=== PATIENT | female | born 1960 | race Caucasian/White ===

== ENCOUNTER 2018-04-23 07:30 | Inpatient (IN) | payer BC ==
[~2018-04-23] VITALS: Ht 149.9 cm; Wt 59.2 kg
[~2018-04-23 07:30] MED LIST: BACITRACIN 50,000 UNIT ONE; BACITRACIN OINT 500U/GM, 15 GM ONE; BUPIVACAINE/PF-EPI 0.5% 1:200K ONE; HYDR-3240 PO; LEVO100T5 PO; METH750T2 PO; THROMBIN SPRAY 20,000 UNIT SPRAY TP ONE; TRAZ50TA66 PO
[2018-04-23] MEDS ORDERED: GABAPENTIN 300 MG CAPSULE PO ONE ×2 (11:30→12:00)
[2018-04-23] MEDS ORDERED: ACETAMINOPHEN 500 MG TABLET PO ONE ×2 (11:30→12:00)
[2018-04-23] MEDS ORDERED: ONDANSETRON ODT 8 MG PO ONE ×2 (11:30→12:00)
[2018-04-23] MEDS ORDERED: LACTATED RINGERS 1,000 ML IV SCH (11:36)
[2018-04-23] MEDS ORDERED: MIDAZOLAM 1 MG/ML, 2ML ONE ×2 (12:35→15:12)
[2018-04-23] MEDS ORDERED: DEXAMETHASONE 4 MG/ML, 1ML ONE ×2 (12:35)
[2018-04-23] MEDS ORDERED: FENTANYL PF 250 MCG/5ML ONE (12:35)
[2018-04-23] MEDS ORDERED: CEFAZOLIN 1,000 MG ONE ×2 (12:36)
[2018-04-23] MEDS ORDERED: SUCCINYLCHOLINE 20 MG/ML, 10ML ONE (12:36)
[2018-04-23] MEDS ORDERED: LIDOCAINE-MPF 2% ,5ML ONE (12:36)
[2018-04-23] MEDS ORDERED: PROPOFOL 10 MG/ML, 20ML ONE (12:36)
[2018-04-23] MEDS ORDERED: PROPOFOL 50 ML ONE (12:44)
[2018-04-23] MEDS ORDERED: LORazepam 2 MG/ML, 1ML IVPush PRN (15:00)
[2018-04-23] MEDS ORDERED: hydrALAzine 20 MG/ML, 1ML IV PRN (15:00)
[2018-04-23] MEDS ORDERED: LABETALOL 5MG/ML, 20ML IV PRN (15:00)
[2018-04-23] MEDS ORDERED: METOCLOPRAMIDE 5 MG/ML, 2ML IV PRN (15:00)
[2018-04-23] MEDS ORDERED: MEPERIDINE/PF 25MG/0.5ML IVPush PRN (15:00)
[2018-04-23] MEDS ORDERED: OXYcodone 5 MG/5 ML ORAL.SOL UDC PO PRN (15:00)
[2018-04-23] MEDS: FENTANYL PF 100 MCG/2ML IV PRN ×2 (16:58→17:07)
[2018-04-23] MEDS ORDERED: HYDROmorphone 2 MG/ML, 1ML ONE (17:00)
[2018-04-23] MEDS ORDERED: FENTANYL PF 100 MCG/2ML ONE (17:00)
[2018-04-23] MEDS ORDERED: OXYcodone 5 MG/5 ML ORAL.SOL UDC ONE (17:00)
[2018-04-23] MEDS: HYDROmorphone 2 MG/ML, 1ML IVPush PRN ×2 (17:03→17:25)
[2018-04-23] MEDS ORDERED: HYDROcodone/APAP 5/325 TABLET PO PRN (19:00)
[2018-04-23] MEDS ORDERED: PROMETHAZINE 25 MG/ML, 1ML IM PRN (19:00)
[2018-04-23] MEDS ORDERED: ACETAMINOPHEN 325 MG TABLET PO PRN (19:00)
[2018-04-23] MEDS ORDERED: BISACODYL 10 MG SUPP PR PRN (19:00)
[2018-04-23] MEDS ORDERED: DIPHENHYDRAMINE 50 MG/ML, 1ML IVPush PRN (19:00)
[2018-04-23] MEDS ORDERED: ACETAMINOPHEN 650 MG SUPP PR PRN (19:00)
[2018-04-23] MEDS ORDERED: DIPHENHYDRAMINE 50 MG CAPSULE PO PRN (19:00)
[2018-04-23] MEDS ORDERED: MAGNESIUM HYDROXIDE 8%, 30ML UDC PO PRN (19:00)
[2018-04-23] MEDS ORDERED: ONDANSETRON 2MG/ML, 2ML IV PRN (19:00)
[2018-04-23] MEDS ORDERED: LORazepam 1MG TABLET PO PRN (19:00)
[2018-04-23] MEDS ORDERED: DIPHENHYDRAMINE 50 MG/ML, 1ML IM PRN (19:00)
[2018-04-23] MEDS ORDERED: HYDROmorphone 2 MG/ML, 1ML IV PRN (19:30)
[2018-04-23] MEDS ORDERED: METHOCARBAMOL 1,000 MG in DEXTROSE 5% 100 ML IV ONE (20:00)
[2018-04-23] MEDS ORDERED: ZOLPIDEM 5MG TABLET PO PRN (21:00)
[2018-04-23] MEDS: CEFAZOLIN PMX 2GM/50ML 50 ML IVPB SCH (22:05)
[2018-04-24 00:13] VITALS: BP 124/74
[2018-04-24] MEDS: HYDROcodone/APAP 10/325 MG TABLET PO PRN ×4 (00:18→23:54)
[2018-04-24] MEDS: DECADRON MC SCH ×2 (01:30→09:17)
[2018-04-24] MEDS: NS + 20MEQ KCL 1,000 ML IV SCH ×2 (01:53→18:08)
[2018-04-24] MEDS ORDERED: DEXAMETHASONE 4 MG/ML, 1ML IVPush ONE (02:00)
[2018-04-24] MEDS: METHOCARBAMOL 750 MG in DEXTROSE 5% 100 ML IV SCH ×3 (03:55→23:54)
[2018-04-24 04:08] VITALS: BP 122/78
[2018-04-24] MEDS: CEFAZOLIN PMX 2GM/50ML 50 ML IVPB SCH (05:11)
[2018-04-24] MEDS ORDERED: DEXAMETHASONE 4 MG/ML, 1ML ONE (06:19)
[2018-04-24] MEDS: DEXAMETHASONE 4 MG/ML, 1ML IVPush SCH ×3 (06:22→15:47)
[2018-04-24 07:28] VITALS: BP 116/74
[2018-04-24] MEDS: SENNA/DOCUSATE TABLET PO SCH ×2 (08:37→11:08)
[2018-04-24 13:45] VITALS: BP 121/69
[2018-04-24 19:00] VITALS: BP 124/74
[2018-04-25 01:53] VITALS: BP 115/75
[2018-04-25] MEDS ORDERED: LEVOTHYROXINE 100 MCG TABLET PO SCH (06:00)
[2018-04-25 07:39] VITALS: BP 115/69
[2018-04-25] MEDS: METHOCARBAMOL 750 MG in DEXTROSE 5% 100 ML IV SCH (08:09)
[2018-04-25] MEDS: HYDROcodone/APAP 10/325 MG TABLET PO PRN ×2 (08:12→14:06)
[2018-04-25] MEDS: NS + 20MEQ KCL 1,000 ML IV SCH (09:20)
[2018-04-25 13:31] VITALS: BP 108/70
[2018-04-25] MEDS ORDERED: HYDR-3240 PO (14:15)
[2018-04-25] MEDS ORDERED: CYCL5TAB PO (14:15)
[2018-04-26] MEDS ORDERED: METHOCARBAMOL 750 MG TABLET PO SCH (06:00)
== END 2018-04-25 14:59 | disposition home or self-care (01) | DRG 473 ==
LOC: ORIP 11:10 → 4NOR 18:26
PROVIDERS: ADMIT Neurological Surgery; ATTEND Neurological Surgery
PROC: 0RG40A0 Fusion of Cervicothoracic Vertebral Joint with Interbody Fusion Device, Anterior Approach, Anterior Column, Open Approach (ICD-10-PCS; 2018-04-23)
PROC: 0RB30ZZ Excision of Cervical Vertebral Disc, Open Approach (ICD-10-PCS; 2018-04-23)
PROC: 4A11X4G Monitoring of Peripheral Nervous Electrical Activity, Intraoperative, External Approach (ICD-10-PCS; 2018-04-23)
PROC: 0RG20A0 Fusion of 2 or more Cervical Vertebral Joints with Interbody Fusion Device, Anterior Approach, Anterior Column, Open Approach (ICD-10-PCS; principal; 2018-04-23 14:00)
DX: M96.0 Pseudarthrosis after fusion or arthrodesis (principal); Y83.8 Other surgical procedures as the cause of abnormal reaction of the patient, or of later complication, without mention of misadventure at the time of the procedure; Y79.3 Surgical instruments, materials and orthopedic devices (including sutures) associated with adverse incidents; M48.02 Spinal stenosis, cervical region; Z88.1 Allergy status to other antibiotic agents; Z91.010 Allergy to peanuts; Z91.018 Allergy to other foods; Q85.00 Neurofibromatosis, unspecified; Z98.1 Arthrodesis status; Z90.89 Acquired absence of other organs
CPT/HCPCS: 72040; C1713; C9359; G0378; J0690; J1100; J1170; J2250; J2704; J3010; J3480; J3490; Q0162; C1778; C1781; J0330; J2800